=== PATIENT | male | born 2000 | race Asian ===

== ENCOUNTER 2023-10-04 11:41 | Outpatient (AMB) | payer OTHER, SELFPAY ==
--- NOTE | 2023-10-04 12:07 | A.OFFPC_ITS ---
Vital Signs 10/04/23 12:10 Height 5 ft 5.9 in Weight 170 lb 2 oz BMI 27.5 BP 120/62 Blood Pressure Location Lt brachial Position Sitting Pulse 67 Pulse Source Pulse Oximeter Pulse Oximetry (%) 98 Oxygen Delivery Method Room Air Intake Visit Reasons: EST Care Intake Note: pt is here for new patient, establish care. no concerns Engagement Quality Consultant Required: No Allergies No Known Allergies Allergy (Verified 10/04/23 12:36) Medication List - Last Reconciled 10/04/23 by Nancy Sena MD No Known Home Meds Tobacco use date assessed: 10/04/23 Dental Screening Dental Screen Date: 10/04/23 Did you have a dental visit in the last 12 months?: Yes Did you have a dental problem in the last 6 months where you did not have access to dental care?: No Was dental information given to patient?: Patient has dentist HPI EST Care HPI Details 23-year-old male, here today to [facility] with a new PCP and for physical exam. He has no concerns at present time currently not on any medication. He is up-to-date with his flu shot but has not yet had his COVID booster PFSH Medical History (Updated 10/04/23 @ 12:43 by Nancy Sena MD) No pertinent past medical history Surgical History (Updated 10/04/23 @ 12:43 by Nancy Sena MD) No pertinent past surgical history Family History (Updated 10/04/23 @ 12:44 by Nancy Sena MD) Other No pertinent family history in first degree relatives Social History Housing: House (with parents ) Patient Tobacco Use Status: Never used Tobacco e-Cigarette/Vaping Use: Never Used service: No Current occupational status: student ([employer], [email or web address] ) Cognitive needs: No Hearing needs: No Vision needs: Yes Questionnaire PHQ-9 Over the last 2 weeks, how often have you been bothered by any of the following problems? 1. Little interest or pleasure in doing things: not at all 2. Feeling down, depressed, or hopeless: not at all 3. Trouble falling or staying asleep, or sleeping too much: not at all 4. Feeling tired or having little energy: not at all 5. Poor appetite or overeating: not at all 6. Feeling bad about yourself - or that you are a failure or have let yourself or your family down: not at all 7. Trouble concentrating on things, such as reading the newspaper or watching television: not at all 8. Moving or speaking so slowly that other people could have noticed. Or the opposite - being so fidgety or restless that you have been moving around a lot more than usual: not at all 9. Thoughts that you would be better off or of hurting yourself in some way: not at all Total score: 0 Depression Screening Interpretation: Negative Depression Screening Done: Yes 26542 - PHQ-9 Billing: Yes Source: Developed by Drs. Kelvin Olivas, Hannah Hamilton, Rigoberto Cruz and colleagues, with an educational angelic from [employer]. Thrive Questionnaire Date Thrive assessed: 10/04/23 I am a: Patient What is your living situation today?: I have a steady place to live Within the past 12 months, did the food you bought not last and you didn't have the money to get more?: Never true Within the past 12 months, did you worry whether your food would run out before you got money to buy more?: Never true Do you have trouble paying for medicines?: No Do you have trouble getting transportation to medical appointments?: No Do you have trouble paying your heating and electricity bill?: No Do you have trouble taking care of your child, family member or friend?: No Do you have trouble with day-to-day activities such as bathing, preparing meals, shopping, managing finances, etc.?: No Are you currently unemployed and looking for a job?: No Are you interested in more education?: No Please select the resources that you would like help with: None Currently or been in a relationship where the following occur: no concerns reported AUDIT C Alcohol Use Questionnaire (AUDIT-C) 1. How often do you have a drink containing alcohol?: Never 3. How often do you have six or more drinks on one occasion?: Never Total Score: 0 Score Reviewed/Action Taken: Yes JENS-7 AMB Questionnaire JENS-7 Date JENS - 7 assessed: 10/04/23 Feeling nervous, anxious, or on edge: 1 = Several days Not being able to stop or control worryin = Not at all Worrying too much about different things: 1 = Several days Trouble relaxin = Not at all Being so restless that it is hard to sit still: 0 = Not at all Becoming easily annoyed or irritable: 0 = Not at all Feeling afraid as if something awful might happen: 1 = Several days Total JENS-7 score (0-4 normal; 5-9 mild; 10-14 moderate; 15-21 severe): 3 Source: Developed by Drs. Kelvin Olivas, Hannah Hamilton, Rigoberto Cruz and colleagues, with an educational angelic from [employer]. JENS-7 Assessment Billing JENS-7 Assessment Tool: JENS-7 Assessment 87742 Review of Systems Const Denies body aches, Denies fatigue, Denies fever(s), Denies headache(s) and Denies weakness Eyes Denies change in vision, Denies eye discharge and Denies itchy eyes ENT Denies dizziness, Denies headache(s), Denies nasal congestion, Denies nasal discharge and Denies sore throat Card Denies chest pain, Denies lightheadedness, Denies palpitations and Denies dyspnea Resp Denies chest congestion, Denies cough, Denies dyspnea and Denies wheezing GI Denies abdominal pain, Denies change in bowel habits and Denies heartburn Denies hematuria, Denies difficulty urinating, Denies dysuria, Denies urinary frequency and Denies urinary urgency Musc Reports no additional complaints Skin/Breast Denies breast pain, Denies breast mass, Denies lesions and Denies rash Neuro Denies dizziness, Denies headache(s) and Denies weakness Psych Reports no additional complaints Endo Denies fatigue, Denies polydipsia, Denies polyuria and Denies palpitations Daljit/Lymph Denies easy bruising Aller/Immun Denies itchy eyes, Denies seasonal rhinorrhea and Denies wheezing Physical exam (Primary Care) Vital Signs: Last Vital Signs Pulse 67 10/04/23 12:10 BP 120/62 10/04/23 12:10 Pulse Ox 98 10/04/23 12:10 Oxygen Delivery Method Room Air 10/04/23 12:10 BMI result Body Mass Index 27.5 Tobacco/Smoking Status: Tobacco use Status Tobacco use date assessed 10/04/23 10/04/23 12:14 Patient Tobacco Use Status Never used Tobacco 10/04/23 12:14 e-Cigarette/Vaping Use Never Used 10/04/23 12:14 PHQ-9: PHQ-9 Score PHQ-9: Total score 0 10/04/23 12:38 Depression Screening Interpretation: Negative Thrive Assessment: Date of Thrive Assessment Date Thrive assessed 10/04/23 10/04/23 12:21 Currently or been in a relationship where the following occur: no concerns reported Const General: no acute distress and alert Nutritional Appearance: average body habitus Orientation/consciousness: patient oriented x3 HENMT Head: Yes normocephalic and Yes atraumatic Ears: external ears normal, TM's normal bilaterally and EAC's normal General nose exam: Normal external nose present and No nasal discharge present Face and sinus: Yes face symmetric Mouth: Normal oral and palatal mucosa present, lip normal, tongue normal, oropharynx normal and moist mucous membranes Eyes General: appearance normal, both eyes and all related structures Eyelids: Yes eyelids normal Conjunctivae: conjunctivae normal Sclerae: sclerae normal Pupils: Equal, round and reactive pupils present EOM: EOMs intact bilaterally Neck Neck: Yes full ROM, Yes no lymphadenopathy and Yes supple Thyroid: Thyroid normal Chest Chest palpation & inspection: normal inspection of the chest Resp Effort & Inspection: normal respiratory effort and able to speak in complete sentences Auscultation: clear to auscultation bilaterally Cardio Rate: regular rate Rhythm: regular rhythm Heart sounds: S1 normal heart sound present and S2 normal heart sound present GI Palpation (GI): Soft to palpation, nontender, no guarding and no masses Auscultation: normal bowel sounds General: Yes no CVA tenderness Male General Exam: No hernia Scrotum: no hydroceles and no inguinal hernias Testes: no testicular mass Back/Spine/Pelvis Back: no CVA tenderness and No back tenderness Skin General skin exam: no rashes or lesions noted Neuro General: patient oriented x3, gait normal, moves all extremities, Normal light touch and pain sensation, no focal motor deficits and CN's II-XI intact bilaterally Cranial nerves: Yes Equal, round and reactive pupils present Cognition (Neuro): normal cognition Gait exam (Neuro): Normal gait present Motor exam (neuro): 5/5 motor strength present throughout Extrem General: Yes normal to inspection, Yes full ROM, Yes no joint enlargement, Yes no pedal edema and Yes normal gait Psych Appearance: grossly normal and well kempt Mental Status: mental status grossly normal Speech and movement: Normal speech and movement present Affect: normal affect Attitude: cooperative Thought process: Normal thought process present Thought content: Normal thought content present Assessment and Plan Assessment & Plan (1) Adult general medical exam: Code(s): Z00.00 - Encounter for general adult medical examination without abnormal findings Plan: Will check appropriate labs. Recommended dental visit every 6 months and regular eye exams, at least every 2 years. Instructed to do testicular exam to check for any mass. Up-to-date with his flu vaccine, reminded to get his COVID booster Orders: Orders Hemoglobin and Hematocrit 10/04/23 Z00.00 - Encounter for general adult medical examination without abnormal findings, Z13.220 - Encounter for screening for li poid disorders, Z13.1 - Encounter for screening for diabetes mellitus Vitamin D 25-OH Total 10/04/23 Z00.00 - Encounter for general adult medical examination without abnormal findings, Z13.220 - Encounter for screening for lipoid disorders, Z13.1 - Encounter for screening for diabetes mellitus Lipid Panel 10/04/23 Z00.00 - Encounter for general adult medical examination without abnormal findings, Z13.220 - Encounter for screening for lipoid disorders, Z13.1 - Encounter for screening for diabetes mellitus Glucose Fasting 10/04/23 Z00.00 - Encounter for general adult medical examination without abnormal findings, Z13.220 - Encounter for screening for lipoid disorders, Z13.1 - Encounter for screening for diabetes mellitus Coding Level of Care Code New Pt Prev Care 18-39yr([id number] Diagnoses Adult general medical exam Z00.00 Additional Codes JENS-7 Assessment Billing - JENS-7 Assessment Tool: JENS-7 Assessment 08651 ([id number])
[2023-10-04 12:10] VITALS: BP 120/62; PULSE 67; O2SAT 98; BMI 27.5
== END 2023-10-04 12:56 | disposition home or self-care (01) ==
PROVIDERS: Visit Provider Internal Medicine
DX: Z00.00 Encounter for general adult medical examination without abnormal findings (principal)
CPT/HCPCS: 99385

== ENCOUNTER 2023-10-04 13:02 | Outpatient (REF) | payer OTHER, SELFPAY ==
[2023-10-04 16:25] LABS: Hematocrit 44.9 % (42.0-52.0)
[2023-10-04 16:37] LABS: Cholesterol 170 mg/dL (<200); Glucose Fasting 88 mg/dL (60-99); HDL Cholesterol 52 mg/dL (>40); LDL Cholesterol Calculated 105 mg/dL (<100); Triglycerides 65 mg/dL (<150); Vitamin D 25-OH Total 34.1 ng/mL (>30)
== END 2023-10-04 13:03 | disposition home or self-care (01) ==
LOC: HO.HMGCLDS 13:02
PROVIDERS: PCP Internal Medicine; Visit Provider Internal Medicine
DX: Z00.00 Encounter for general adult medical examination without abnormal findings (principal); Z13.220 Encounter for screening for lipoid disorders; Z13.1 Encounter for screening for diabetes mellitus
CPT/HCPCS: 36415; 80061; 82306; 82947; 85014; 85018

== ENCOUNTER 2024-04-24 10:19 | Outpatient (AMB) | payer OTHER, SELFPAY ==
[2024-04-24 11:11] VITALS: BP 130/78; PULSE 60; O2SAT 97; BMI 27.7
--- NOTE | 2024-04-24 11:11 | MHC.OFFWIV ---
Intake Vital Signs 04/24/24 11:11 Height 5 ft 5.9 in Weight 171 lb 4 oz BMI 27.7 BP 130/78 Blood Pressure Location Rt brachial Position Sitting Pulse 60 Pulse Source Pulse Oximeter Pulse Oximetry (%) 97 Oxygen Delivery Method Room Air Intake Visit Reasons: EP Rash Patient Tobacco Use Status: Never used Tobacco Allergies No Known Allergies Allergy (Verified 04/24/24 11:14) Medication List - Last Reconciled 04/24/24 by Lindsay Mascorro MD No Known Home Meds Do you need a note to return to daycare/school/sports/work: No HPI EP Rash HPI Details Patient is 23-year-old gentleman came in today to be evaluated for rash she developed 2 days ago Patient says that new rash appears and the 0 1 gets better Does not have any swelling of lips, no swelling of tongue no difficulty breathing or swallowing Examination patient has developed hives on his legs arms torso He has started taking Benadryl, Instructed patient to continue Benadryl and I have also sent Medrol Dosepak. Follow up with the primary care Review system reveals no fever no chills no nausea no vomiting no abdominal pain PFSH Medical History No pertinent past medical history Surgical History No pertinent past surgical history Family History Other No pertinent family history in first degree relatives Social History Housing: House (with parents ) Patient Tobacco Use Status: Never used Tobacco e-Cigarette/Vaping Use: Never Used service: No Current occupational status: student ([employer], [employer] ) Cognitive needs: No Hearing needs: No Vision needs: Yes Review of Systems Const All systems reviewed & are unremarkable except as noted in HPI and below Physical Exam Vital Signs: Last Vital Signs Pulse 60 04/24/24 11:11 BP 130/78 04/24/24 11:11 Pulse Ox 97 04/24/24 11:11 Oxygen Delivery Method Room Air 04/24/24 11:11 BMI result Body Mass Index 27.7 Const General: no acute distress Orientation/consciousness: patient oriented x3 Eyes General: appearance normal, both eyes and all related structures Resp Effort & Inspection: normal respiratory effort and able to speak in complete sentences Auscultation: clear to auscultation bilaterally Cardio Other: S1 S2 Skin Other: Raised patchy pruritic rash all over the body mostly legs arms and torso Neuro General: patient oriented x3 Psych Mental Status: mental status grossly normal Assessment & Plan Assessment & Plan (1) Hives: Code(s): L50.9 - Urticaria, unspecified Plan Patient is 23-year-old gentleman came in today to be evaluated for rash she developed 2 days ago Patient says that new rash appears and the 0 1 gets better Does not have any swelling of lips, no swelling of tongue no difficulty breathing or swallowing Examination patient has developed hives on his legs arms torso He has started taking Benadryl, Instructed patient to continue Benadryl and I have also sent Medrol Dosepak. Follow up with the primary care Review system reveals no fever no chills no nausea no vomiting no abdominal pain Medications: New methylprednisolone (Medrol (Jake)) PO PER PKG DIR 6 days 21 ea 0RF Coding Level of Care Code Est Pt Level 3 (90314) Diagnoses Hives L50.9
== END 2024-04-24 11:47 | disposition home or self-care (01) ==
PROVIDERS: PCP Internal Medicine; Visit Provider Internal Medicine
DX: L50.9 Urticaria, unspecified (principal)
CPT/HCPCS: 99213

== ENCOUNTER 2024-06-29 08:39 | Outpatient (AMB) | payer OTHER, SELFPAY ==
[2024-06-29 08:40] VITALS: BP 116/70; PULSE 65; O2SAT 100
--- NOTE | 2024-06-29 08:40 | AM.OFFWIN_ITS ---
Intake Vital Signs 06/29/24 08:40 Weight 173 lb BP 116/70 Blood Pressure Location Rt brachial Position Sitting Pulse 65 Pulse Source Pulse Oximeter Pulse Oximetry (%) 100 Oxygen Delivery Method Room Air Intake Visit Reasons: EP- Patient has bumps on faces Intake Note: Patient here for bumps on right side of face that has been present for a bout 2- 3 weeks. Patient Tobacco Use Status: Never used Tobacco Allergies No Known Allergies Allergy (Verified 06/29/24 08:41) Do you need a note to return to daycare/school/sports/work: No HPI EP- Patient has bumps on faces HPI Details This note is constructed using voice recognition software. While every effort has been made to ensure accuracy, java mobile developer errors may have been included. The patient is a 23 year old male who presents to the clinic today with complaints of bumps to the right side of his face for the past 3 weeks. He has had these bumps over the entirety of his face. He typically washes his face once a day with some sort of face wash that he gets from treat her [employer], he does not recall what ingredients are in his face wash. He denies pain, itch, discharge, fever, chills, neuralgias, or any other symptoms related to this. He has had no other new soaps, lotions, perfumes, detergents. He has not seen a primary care provider in several years. [facility] Medical History No pertinent past medical history Surgical History No pertinent past surgical history Family History Other No pertinent family history in first degree relatives Social History Housing: House Patient Tobacco Use Status: Never used Tobacco e-Cigarette/Vaping Use: Never Used service: No Current occupational status: student Cognitive needs: No Hearing needs: No Vision needs: Yes Review of Systems Const All systems reviewed & are unremarkable except as noted in HPI and below Physical Exam Vital Signs: Last Vital Signs Pulse 65 06/29/24 08:40 BP 116/70 06/29/24 08:40 Pulse Ox 100 06/29/24 08:40 Oxygen Delivery Method Room Air 06/29/24 08:40 Const General: cooperative, healthy appearing, comfortable, no acute distress and alert Orientation/consciousness: patient oriented x3 Limitations: no limitations HEENT Head: Yes normal to inspection and Yes normocephalic Eyes General: appearance normal, both eyes and all related structures Neck Neck: Yes normal visual inspection, Yes full ROM and Yes no lymphadenopathy Skin Other: Closed comedones with slight erythematous base in large portion of right forehead, with additional closed comedones scattered throughout face. General skin exam: elasticity normal and turgor normal Neuro General: patient oriented x3 Extrem General: Yes normal to inspection, Yes full ROM, Yes capillary refill normal and Yes normal exam except as noted Psych Appearance: grossly normal Mental Status: mental status grossly normal Speech and movement: Normal speech and movement present Affect: normal affect Assessment & Plan Assessment & Plan (1) Acne vulgaris: Code(s): L70.0 - Acne vulgaris Plan: Reassuring physical examination, with no signs of secondary bacterial infection. Advised patient to wash his face twice per day using benzoyl peroxide containing cleanser. Advised him to wash his hands prior to washing his face. Increased hydration, and avoid touching his face when possible. Advised him to follow with primary care provider, he is going to inquire with a new primary care provider for long-term management of this. He may require topical treatm ent, which is unable to be monitored from this clinic, and short-term treatment likely to be ineffective for his acne. Plan See above for full details and plan. Coding Level of Care Code Est Pt Level 3 (13422) Diagnoses Acne vulgaris L70.0
== END 2024-06-29 08:58 | disposition home or self-care (01) ==
PROVIDERS: PCP Internal Medicine; Visit Provider Registered Nurse
DX: L70.0 Acne vulgaris (principal)
CPT/HCPCS: 99213

== ENCOUNTER 2025-06-20 11:22 | Outpatient (AMB) | payer OTHER, SELFPAY ==
[2025-06-20 11:27] VITALS: BP 104/60; PULSE 76; TEMP 37; O2SAT 98; BMI 25.2
--- NOTE | 2025-06-20 11:27 | MHC.OFFWIV ---
Intake Vital Signs 06/20/25 11:27 Height 5 ft 9.5 in Weight 173 lb BMI 25.2 BP 104/60 Blood Pressure Location Lt brachial Position Sitting Pulse 76 Pulse Source Pulse Oximeter Temp 98.6 F Temp Source Oral Pulse Oximetry (%) 98 Oxygen Delivery Method Room Air Intake Visit Reasons: EP-b/l leg insect bite & lt ear issue Intake Note: presents with right leg calf redness, pain and itching after being bitten by bugs to arms and legs a couple days ago Patient Tobacco Use Status: Never used Tobacco Allergies No Known Allergies Allergy (Verified 06/20/25 11:28) Do you need a note to return to daycare/school/sports/work: No HPI HPI Comments History of Present Illness Details History of Present Illness - The patient is a 24-year-old male presenting with a skin infection following a bug bite. - The patient reports being bitten by a bug on Wednesday, leading to swelling and redness to the right lower leg. - He states that the leg feels tight when he bends his leg but he has no pain. - There is no associated fever or chills reported. - The patient was visiting relatives in [place] when the bite occurred. - He has no drainage, bleeding, streaking, discharge, calf pain, numbness, or tingling. ear pain - The patient also reports ear discomfort described as a sensation of fullness. - He has no pain or ringing in the ear. - The patient has had ear cleaning at a hair salon, which may have contributed to the sensation. - He denies dizziness, TITUS, or cold symptoms. Physical Exam General: Cooperative, healthy appearing, comfortable, no acute distress and well developed Orientation: Patient oriented x3 Limitations: No limitations Head: Normal to inspection Ears: Hearing grossly normal bilaterally. Cerumen noted in the ear canals bilaterally, TMs not visualized. Respiratory: Normal respiratory effort and able to speak in complete sentences. Clear to auscultation bilaterally Cardiovascular: Regular rate and rhythm. Normal S1 and S2 Skin: Redness and swelling noted on the right lower posterior leg with bites noted. No streaking, mild warmth noted. Neuro: Sensation intact. Extremities: Normal to inspection. Negative Helder's on the right. FROM of the right knee and ankle. Strength is 5/5 on the LE bilaterally. Patient was informed and verbally consented to the use of an ambient scribe for clinic note documentation during this visit. [facility] Medical History No pertinent past medical history Surgical History No pertinent past surgical history Family History Other No pertinent family history in first degree relatives Social History Housing: House Patient Tobacco Use Status: Never used Tobacco e-Cigarette/Vaping Use: Never Used service: No Current occupational status: student Cognitive needs: No Hearing needs: No Vision needs: Yes Review of Systems Const All systems reviewed & are unremarkable except as noted in HPI and below Physical Exam Vital Signs: Last Vital Signs Temp 98.6 F 06/20/25 11:27 Pulse 76 06/20/25 11:27 BP 104/60 06/20/25 11:27 Pulse Ox 98 06/20/25 11:27 Oxygen Delivery Method Room Air 06/20/25 11:27 BMI result Body Mass Index 25.2 Assessment & Plan Assessment & Plan (1) Bug bites: Code(s): W57.XXXA - Bitten or stung by nonvenomous insect and other nonvenomous arthropods, initial encounter Qualifiers: Encounter type: initial encounter Qualified Code(s): W57.XXXA - Bitten or stung by nonvenomous insect and other nonvenomous arthropods, initial encounter (2) Cellulitis of leg, right: Code(s): L03.115 - Cellulitis of right lower limb (3) Left ear pain: Code(s): H92.02 - Otalgia, left ear (4) Cerumen impaction: Code(s): H61.20 - Impacted cerumen, unspecified ear Qualifiers: Laterality: bilateral Qualified Code(s): H61.23 - Impacted cerumen, bilateral Plan Most likely cellulitis from his bug bites Also has cerumen impaction in both ears Plan - Prescribe oral antibiotics for cellulitis and advise the patient to complete the full course. - Instruct the patient to monitor for fever, chills, increased redness, or swelling and to seek further medical attention if these symptoms occur. - Recommended irrigation of the ears today in the office and patient refused - Will prescribe ear drops for cerumen impaction and advise follow-up if symptoms persist. - follow up with PCP Medications: New cephalexin 500 mg PO Q6H 28 caps 0RF carbamide peroxide 6.5% (Debrox) 5 drps otic (ears) DAILY 15 mL 0RF 4 days Coding Level of Care Code Est Pt Level 4 (16904) Diagnoses Bug bite, initial encounter W57.XXXA Encounter type: initial encounter Cellulitis of leg, right L03.115 Left ear pain H92.02 Bilateral impacted cerumen H61.23 Laterality: bilateral
== END 2025-06-20 12:38 | disposition home or self-care (01) ==
PROVIDERS: PCP Internal Medicine; Visit Provider Physician Assistant Medical
DX: T63.481A Toxic effect of venom of other arthropod, accidental (unintentional), initial encounter (principal); L03.115 Cellulitis of right lower limb; H92.02 Otalgia, left ear; H61.23 Impacted cerumen, bilateral